=== PATIENT | male | born 1960 | race Caucasian/White ===

== ENCOUNTER 2017-06-22 10:52 | Outpatient (CLI) | payer MEDICAID ==
[~2017-06-22] VITALS: Ht 182.9 cm; Wt 104.5 kg
--- NOTE | ~2017-06-22 | HEMODYNAMI ---
PATIENT:STEVE KLEIN MEDICAL RECORD: [id number] : 56 LOCATION:TI ADMISSION DATE: 06/22/17 Generatedon:06/22/201713:38 Patient name: STEVE KLEIN Patient #: [id number] SSN: : 1960 Date of study: 06/22/2017 Page: Of Hemodynamic Procedure Report Patient Data Patient Demographics Procedure consent was obtained First Name: STEVE Gender: Male Last Name: LATOYA : 1960 [facility] Initial: MAYCOL Age: 56 year(s) Patient #: [id number] Race: Additional ID: [id number] Contact details [address]: [address] [place] [address] State: [place] City: [place] Zip code: [address] Past Medical History Allergies: No known allergies Admission Admission Data Admission Date: 06/22/2017 Admission Time: 10:52 Lab Results Lab Result Date: 06/22/2017 Lab Result Time: 11:25 Biochemistry Name Units Result Min Max BUN mg/dl 17 --(---*)-- 7 18 Creatinine mg/dl 1.2 --(---*)-- 0.6 1.3 CBC Name Units Result Min Max Hematocrit % 42.9 --(*---)-- 42 54 Hemoglobin g/dl 14.7 --(-*--)-- 13.5 17.5 Procedure Procedure Types Cath Procedure Diagnostic Procedure C [facility] w/Coronaries PCI Procedure Coronary Stent Initial Miscellaneous Procedures Moderate Sedation up to 45 minutes Procedure Description Procedure Date Procedure Date: 06/22/2017 Procedure Start Time: 13:15 Procedure End Time: 13:38 Procedure Staff Name Function Jordan Alcazar MD Performing Physician Guadalupe Forte RT Scrub Maritza Torrez RN Nurse Fredy Chase RT Monitor Procedure Data Cath Procedure Fluoroscopy Diagnostic fluoroscopy Total fluoroscopy Time: 5.7 time: 5.7 min min Diagnostic fluoroscopy Total fluoroscopy dose: dose: 1096 mGy 1096 mGy Contrast Material Contrast Material Type Amount (ml) Isovue 300 115 Entry Location Entry Primary Successful Side Size Upsize Upsize Entry Closure Alvarez ccessful Closure Location (Fr) 1 (Fr) 2 (Fr) Remarks Device Remarks Radial Right 6 Fr Mechanical artery Short Compression Estimated blood loss: 10 ml Diagnostic catheters Device Type Used For End Catheter Placement Diagnostic Terumo 5Fr Procedure [place] 110cm catheter Procedure Complications No complications Procedure Medications Medication Administration Route Dosage Oxygen NC 2 l/min Lidocaine 2% added to field 20 Heparin Flush Bag added to field 2 bags (1000units/500ml NS) 0.9% NaCl I.V. 100 ml/hr Radial Cocktail I.A. 1 syringe (Verapomil 2mg/Nitro 400mcg/Heparin 1500units) Versed I.V. 1 mg Fentanyl I.V. 50 mcg Versed I.V. 1 mg Fentanyl I.V. 50 mcg Heparin Bolus I.V. 4000 units Integrilin (Bolus I.V. 9.5 ml 2mg/ml) Plavix P.O. 600 mg Hemodynamics Rest HGB: 14.7 (g/dl) Heart Rate: 49 (bpm) Pressure Samples Time Site Value (mmHg) Purpose Heart Use Rate(bpm) 13:17 LV 100/1,8 Snapshot 57 13:17 AO 90/51(64) Pullback 59 13:17 LV 101/-5,9 Pullback 59 Gradients Valve Time Site 1 Site 2 Mean SEP/DFP Peak To Heart Use (mmHg) (sec/min) Peak Rate (mmHg) (bpm) Aortic 13:17 LV AO 7 20 11 59 101/-5,9 90/51(64) Calculations Valve P-P Mean Valve Index Valve Source Name Gradient Area Flow (cm2) Aortic 11 7 11 7 Snapshots Pre Cath Intra NCS Post Cath Vital Signs Time Heart Resp SPO2 etCO2 [id number] NIBP Rhythm Pain Sedation Rate (ipm) (%) (mmHg) (mmHg) (mmHg) Status Level (bpm) 12:58:56 45 17 99 0 0 115/66(98) NSR 0 (11) 10(A) , No pain 13:03:10 48 18 99 0 0 112/60(96) NSR 0 (11) 10(A) , No pain 13:07:20 50 15 100 0 0 116/69(93) NSR 0 (11) 10(A) , No pain 13:11:32 49 18 98 0 0 108/65(81) NSR 0 (11) 10(A) , No pain 13:15:44 56 15 98 0 0 107/57(75) NSR 0 (11) 10(A) , No pain 13:19:58 62 15 95 0 0 101/52(71) NSR 0 (11) 10(A) , No pain 13:24:06 57 16 96 0 0 104/62(76) NSR 0 (11) 10(A) , No pain 13:28:14 53 16 97 0 0 104/65(76) NSR 0 (11) 10(A) , No pain 13:32:24 52 16 96 0 0 103/62(77) NSR 0 (11) 10(A) , No pain 13:36:34 52 17 97 0 0 112/55(85) NSR 0 (11) 10(A) , No pain Medications Time Medication Route Dose Verified Delivered Reason Note s Effectiveness by by 13:08:24 Oxygen NC 2 l/min Jordan Salas used for Phil CampbellAlex Torrez RN procedure 13:08:31 Lidocaine 2% added 20ml Jordan Ortega for local to vial [facility] anesthetic field MD GRIFFIN 13:08:39 Heparin Flush added 2 bags Jordan Ortega used for Bag to [facility] procedure (1000units/500ml field MD GRIFFIN NS) 13:08:49 0.9% NaCl I.V. 100 Jordan Salas Per physician ml/hr St. Alex Torrez RN, MD 13:11:27 Versed I.V. 1 mg Jordan Wongie for sedation St. Alex Torrez RN, MD 13:11:34 Fentanyl I.V. 50 mcg Jordan Wongie for sedation St. Alex Torrez RN, MD 13:16:19 Radial Cocktail I.A. 1 Jordan Ortega for (Verapomil syringe [facility] vasodilation 2mg/Nitro MD GRIFFIN 400mcg/Heparin 1500units) 13:17:00 Versed I.V. 1 mg Jordan Wongie for sedation St. Alex Torrez RN, MD 13:17:04 Fentanyl I.V. 50 mcg Jordan Salas for sedation St. Alex Torrez RN, MD 13:22:03 Heparin Bolus I.V. 4000 Jordan Salas for veri fied units St. Alex Torrez RN anticoagulation with dr MD lamas 13:23:28 Integrilin I.V. 9.5 ml Jordan Salas for Wate d (Bolus 2mg/ml) St. Alex Torrez RN antiplatelet 0.5 ml therapy of vial 13:37:43 Plavix P.O. [address] for [address]. Alex Torrez RN antiplatelet therapy Procedure Log Time Note 12:42:33 Guadalupe Counts RT(R) sent for patient. Start room use. 12:42:34 Time tracking: Regular hours 12:42:37 Plan of Care:Hemodynamics will remain stable., Cardiac rhythm will remain stable., Comfort level will be maintained., Respiratory function will remain adequate., Patient/ family verbilizes understanding of procedure., Procedure tolerated without complication., Recovers from procedure without complications.. 12:52:14 Patient received from Pre/Post Procedure Room to CCL 1 Alert and oriented. Tansferred to table in Supine position. 12:52:17 Warm blankets applied, and nyasia hugger turned on for patient comfort. 12:52:17 Correct patient and procedure confirmed by team. 12:52:22 Signed procedure consent form obtained from patient. 12:52:23 ECG and BP/O2 sat monitors applied to patient. 12:52:33 H&P Date Dictated: 06/18/2017 Within 30 days and on chart., H&P Addendum completed by physician on day of procedure. (MUST COMPLETE FOR ALL OUTPATIENTS). 12:57:42 Vital chart was started 13:07:25 Baseline sample Acquired. 13:07:29 Rhythm: sinus rhythm 13:07:31 Pre-procedure instructions explained to patient. 13:07:31 Pre-op teaching completed and patient verbalized understanding. 13:07:33 Family in patients room. 13:07:34 Patient NPO since Midnight. 13:07:38 Patient allergic to No known allergies 13:07:40 Is the patient allergic to Iodine/contrast media? No. 13:07:41 Is patient on blood thinner?No 13:07:43 Patient diabetic? No. 13:07:45 Previous problem with sedation/anesthesia? No ? 13:07:46 Snore? No 13:07:47 Sleep apnea? No 13:07:48 Deviated septum? No 13:07:54 Opens mouth fully? Yes 13:07:57 Sticks out tongue? Yes 13:07:59 Airway obstruction? No ? 13:08:08 Dentures? Yes PARTIAL IN TIGHT 13:08:11 Modified Barron's test Ulnar < 7 seconds 13:08:13 Patient pain scale 0/10 ?. 13:08:21 IV patent on arrival in left hand with 0.9% NaCl at [facility]. 13:08:24 Oxygen 2 l/min NC was administered by Maritza Torrez RN; used for procedure; 13:08:31 Lidocaine 2% 20ml vial added to field was administered by Jordan Alcazar MD; for local anesthetic; 13:08:39 Heparin Flush Bag (1000units/500ml NS) 2 bags added to field was administered by Jordan Alcazar MD; used for procedure; 13:08:49 0.9% NaCl 100 ml/hr I.V. was administered by Maritza Torrez RN; Per physician; 13:08:54 Lab Result : BUN 17 mg/dl 13:08:54 Lab Result : Creatinine 1.2 mg/dl 13:08:54 Lab Result : Hemoglobin 14.7 g/dl 13:08:54 Lab Result : Hematocrit 42.9 % 13:08:56 Lab results completed and on chart. 13:09:09 Right Radial & Right Groin area was prepped with chlora-prep and draped in sterile fashion 13:09:11 Alarms reviewed by R. N. 13:09:11 Sharps counted by scrub and verified by R.N. 13:09:15 Use device set Radial Dx 13:09:17 Tegaderm 4 x 4 opened to sterile field. 13:09:18 Acist Manifold opened to sterile field. 13:09:19 Acist Hand Control opened to sterile field. 13:09:20 Acist Syringe opened to sterile field. 13:09:20 Medline Cath Pack opened to sterile field. 13:09:20 Bag Decanter opened to sterile field. 13:09:21 Terumo 6Fr Slender Glidesheath opened to sterile field. 13:09:21 St Shar 260cm J .035 wire opened to sterile field. 13::26 Physician arrived 13:: --------ALL STOP TIME OUT------ 13::27 Final Timeout: patient, procedure, and site verified with staff and physician. All members of the team are in agreement. 13::28 Right Radial & Right Groin site verified by team. 13::30 Physical assessment completed. ASA score P 2 - A patient with mild systemic disease as per Jordan Alcazar MD. 13:09:33 Sedation plan: IV Moderate Sedation Versed, Fentanyl 13::27 Versed 1 mg I.V. was administered by Maritza Torrez RN; for sedation; 13::34 Fentanyl 50 mcg I.V. was administered by Maritza Torrez RN; for sedation; 13:12:32 Zero performed for pressure channel P1 13:12:43 Zero performed for pressure channel P1 13:14:59 Procedure started. 13:14:59 Full Disclosure recording started 13:15:04 Local anesthetic to right radial artery with Lidocaine 2% by Jordan Alcazar MD.INITIAL ACCESS ONLY 13:15:16 A 6 Fr Short sheath was inserted into the Right Radial artery 13:15:50 A Diagnostic Panoratio 5Fr [place] 110cm catheter was advanced over the wire and used for Procedure. 13:16:19 Radial Cocktail (Verapomil 2mg/Nitro 400mcg/Heparin 1500units) 1 syringe I.A. was administered by Jordan Alcazar MD; for vasodilation; 13:17:00 Versed 1 mg I.V. was administered by Maritza Torrez RN; for sedation; 13:17:04 Fentanyl 50 mcg I.V. was administered by Maritza Torrez RN; for sedation; 13:17:10 LV hemodynamics recorded. 13:17:27 LV gram done using RILEY 13::29 Injector settings: Ml/sec: 5, Volume: 15, 13:17:36 EF : 45 % 13:18:11 LCA angiography performed. 13:19:59 RCA angiography performed. 13:20:22 ReCellular BasixCompak Inflation Kit opened to sterile field. 13:20:24 Catheter removed. 13:20:32 Robertson Whisper J 300cm 0.014 guide wire opened to sterile field. 13:21:56 Sprout Foodstronic Launcher 6Fr EBU 3.5 guide catheter opened to sterile field. 13:22:03 Heparin Bolus 4000 units I.V. was administered by Maritza Torrez RN; for anticoagulation; verified with dr lamas 13:22:52 6 Fr ebu 3.5 guide catheter was inserted over the wire 13:23:28 Integrilin (Bolus 2mg/ml) 9.5 ml I.V. was administered by Maritza Torrez RN; for antiplatelet therapy; Wated 0.5 ml of vial 13:24:00 Guide Catheter removed. unable to cannulate vessel. 13:24:07 Cordis 6FR XBLAD 3.5 guide catheter opened to sterile field. 13:26:36 WHISPER wire advanced. 13:27:26 Inflation Number: 1 A Medtronic Integrity 4.0 X 9 stent was prepped and advanced across the Mid CX. The stent was deployed at 14 RANDA for 0:30 (min:sec). 13:29:43 Stent catheter was removed intact over wire. 13:32:51 Inflation Number: 1 A Medtronic Integrity 4.0 X 9 stent was prepped and advanced across the Prox CX. The stent was deployed at 14 RANDA for 0:15 (min:sec). 13:33:06 Stent catheter was removed intact over wire. 13:33:07 Wire removed. 13:33:07 Guide catheter removed. 13:33:15 Terumo TR Band Standard opened to sterile field. 13:33:30 Sheath removed intact; hemostasis achieved with Mechanical Compression to the Right Radial artery. 13:33:32 Procedure ended.(Physican Out) 13:36:50 Fluoroscopy time 05.70 minutes. 13:36:56 Fluoroscopy dose: 1096 mGy 13:36:56 Flurop Dose total: 1096 13:36:59 Contrast amount:Isovue 300 115ml. 13:37:00 Sharps counted by scrub and verified by R.N. 13:37:04 TR band inflated with 12cc of air. 13:37:09 Post Procedure Pulses reassessed and unchanged 13:37:12 Post-procedure physical assessment completed. ASA score P 2 - A patient with mild systemic disease as per Jordan Alcazar MD. 13:37:16 Post procedure rhythm: unchanged. 13:37:18 Estimated blood loss: 10 ml 13:37:20 Post procedure instruction explained to patient.Patient verbalizes understanding. 13:37:20 Patient needs reinforcement of post procedure teaching. 13:37:37 Procedure type changed to Cath procedure, Diagnostic procedure, LHC, LHC w/Coronaries, PCI procedure, Coronary Stent Initial, Miscellaneous Procedures, Moderate Sedation up to 45 minutes 13:37:43 Plavix 600 mg P.O. was administered by Maritza Torrez RN; for antiplatelet therapy; 13:38:04 Procedure Complication : No complications 13:38:06 Vital chart was stopped 13:38:07 See physician's report for complete and final results. 13:38:08 Report given to Pre/Post Procedure Room. 13:38:10 Patient transfered to Pre/Post Procedure Room with Stretcher. 13:38:12 Procedure ended. 13:38:12 Full Disclosure recording stopped 13:38:16 End room use (Document Last) Intervention Summary Intervention Notes Time ActionType Lesion and Equipment Action# Pressure Duration Attributes Used 13:27:26 Place stent Mid CX Medtronic 1 14 00:30 Integrity 4.0 X 9 stent 13:32:51 Place stent Prox CX Medtronic 1 14 00:15 Integrity 4.0 X 9 stent Device Usage Item Name Manufacture Quantity Catalog Hospital Part Current Minimal Lot# / Number Charge Number Stock Stock Serial# Code Tegaderm 4 1 [id number] 101498 [id number] 5 x 4 Acist Acist 1 89380 220662 275101 152165 5 Manifold [employer] Inc Acist Hand Acist 1 19630 284318 516920 752553 5 Control Medical Systems Inc Acist Acist 1 61188 904393 152576 439182 20 Syringe Medical Systems Inc Medline Cardinal 1 [id number] 020207 44012 229261 5 Cath Pack Health Bag Microtek 1 2002S 352762 77119 518207 5 [employer] Terumo 6Fr Terumo 1 [id number] 475851 404797 726204 [address] St Shar 1 964216 292784 601913 978591 30 260cm J .035 wire Diagnostic Terumo 1 40-6032 570076 447132 286970 5 Terumo 5Fr [place] 110cm catheter Merit Merit 1 [id number] 157948 198840 300993 15 BasixMagnet Systems Medical Inflation Kit Robertson Robertson 1 [id number] 404542 002287 605387 5 Whisper J Vascular 300cm 0.014 guide wire Medtronic Medtronic 1 [id number] 663434 08231 318513 3 Launcher 6Fr EBU 3.5 guide catheter Cordis 6FR Cardinal 1 [id number] 435607 518061 190628 10 XBLAD 3.5 Health guide catheter Medtronic Medtronic 2 [id number] 153546 9546469 3 [id number] [facility] [id number] 4.0 X 9 stent Terumo TR Terumo 1 [id number] 297658 047250 431986 40 Band Standard Signature Audit [place] Stage Time Signature Unsigned Intra-Procedure 06/22/2017 Fredy Chase 1:38:51 PM RT(R) Signatures Monitor : Fredy Chase RT Signature : Date : Time : [place] [id number]
--- NOTE | ~2017-06-22 | OP ---
PATIENT NAME: STEVE KLEIN MEDICAL RECORD: [id number] :56 LOCATION:D.CAT ADMISSION DATE: SURGEON: RUDY VERDUGO MD DATE OF OPERATION: 06/22/2017 PROCEDURES: 1. Left heart catheterization. 2. Right radial approach. CATHETERS: A radial sheath and [place] catheter. The procedure was well tolerated and we proceeded immediately to PTCA stenting. FINDINGS: Left ventriculography in the 30-degree RILEY view shows mild global hypokinesis. Overall, function mildly reduced at 40%-45%. CORONARY ANATOMY: LEFT MAIN: Left main is free of disease. LAD: Proximal to the previously placed stent also involving the previously stent has restenosis both in-stent and end-stent restenosis about 80%. CIRCUMFLEX: Has 2 sequential stenosis, distal 90%, proximal 80%. RIGHT CORONARY ARTERY: Rudimentary without significant disease. PLAN: Interventional to the circumflex momentarily using indwelling sheath. An XB LAD guiding catheter of 0.035 [place] guide support followed by 300 cm Whisper wire was placed across the totally occluded circumflex down to distal portion of this vessel. Initial stent deployed to 90% stenosis was an 8-mm x 4.0 Integrity nondrug-eluting stent, more proximal lesion was addressed with again 4.0 x 8 mm Integrity nondrug-eluting stent. Final injection shows excellent resolution of 80% stenosis proximally and 90% stenosis distally. LUKE flow was 3 throughout the procedure. Heparin and Integrilin were both used during the case. Sheath was closed with TR band. 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
[2017-06-22] MEDS ORDERED: MIRAPEX1 MG PO (11:09)
[2017-06-22] MEDS ORDERED: LEVOTHYROXINE50 MCG PO (11:09)
[2017-06-22] MEDS ORDERED: ROBAXIN500 MG PO (11:09)
[2017-06-22] MEDS ORDERED: ULTRAM50 MG PO (11:10)
[2017-06-22 11:16] VITALS: BP 119/58; Ht 182.9 cm; Wt 104.5 kg
[2017-06-22] MEDS ORDERED: BENICAR HCT 20-1 TA1 PO (11:19)
[2017-06-22 11:29] LABS: BASOPHILS 0.6 % (0-2); EOSINOPHILS 3.5 % (0-7); HEMATOCRIT 42.9 % (42.0-54.0); HEMOGLOBIN 14.7 g/dL (13.5-17.5); IMMATURE GRANULOCYTES 0.3 % (0-5); LYMPHOCYTES 31.8 % (15-50); MCH 30.2 pg (26.0-34.0); MCHC 34.3 g/dL (31.0-37.0); MCV 88.1 fL (80.0-100.0); MEAN PLATELET VOLUME 9.8 fL (7.4-10.4); MONOCYTES 7.4 % (2-11); NEUTROPHILS 56.4 % (40-80); RBC 4.87 10x6/uL (4.20-6.10); RDW 13.1 % (11.5-14.5); WBC 6.4 10x3/uL (4.8-10.8)
[2017-06-22 11:32] LABS: PLATELET COUNT 283 10x3/uL (130-400)
[2017-06-22 11:37] LABS: ANION GAP 10.6 mmol/L (8-16); CALCIUM 8.8 mg/dL (8.5-10.1); CARBON DIOXIDE 27.5 mmol/L (21.0-32.0); CREATININE - SERUM 1.2 mg/dL (0.6-1.3); POTASSIUM - SERUM 4.1 mmol/L (3.5-5.1)
[2017-06-22] MEDS ORDERED: PLAVIX75 MG PO (13:55)
--- NOTE | 2017-06-22 14:00 | NUR ---
TR BAND TO RIGHT WRIST- CDI, NO BLEEDING AT SITE.
--- NOTE | 2017-06-22 14:30 | NUR ---
TR BAND INTACT, NO BLEEDING AT SITE, DIET XIOMARA. CAP REFILL BRISK
--- NOTE | 2017-06-22 18:00 | NUR ---
IV D'C WITH CATH TIP INTACT, 600CC NS INFUSED. TR BAND OFF WITH BANDAID APPLIED AT SITE- NO BLEEDING OR HEMATOMA NOTED. WRITTEN AND VERBAL D'C INSTRUCTIONS GIVEN TO PT AND FATHER- VERBAL UNDERSTANDING NOTED- STRESSED IMPORTANCE OF NOT USING RIGHT HAND FOR 48 HOURS AND NOT LIFTING MORE THAN 10 LBS FOR 4 DAYS. D'C HOME WITH FATHER DRIVING.
== END 2017-06-22 18:00 | disposition home or self-care (01) ==
LOC: D.CATH 10:52
PROVIDERS: Internal Medicine Interventional Cardiology
DX: I25.119 Atherosclerotic heart disease of native coronary artery with unspecified angina pectoris (principal); T82.855A Stenosis of coronary artery stent, initial encounter; Z01.812 Encounter for preprocedural laboratory examination

== ENCOUNTER 2017-06-29 11:41 | Outpatient (CLI) | payer MEDICAID ==
[~2017-06-29] VITALS: Ht 182.9 cm; Wt 104.5 kg
--- NOTE | ~2017-06-29 | HEMODYNAMI ---
PATIENT:STEVE KLEIN MEDICAL RECORD: [id number] : 56 LOCATION:TI ADMISSION DATE: 06/29/17 Generatedon:06/29/201715:34 Patient name: STEVE KLEIN Patient #: [id number] SSN: : 1960 Date of study: 06/29/2017 Page: Of Hemodynamic Procedure Report Patient Data Patient Demographics Procedure consent was obtained First Name: STEVE Gender: Male Last Name: LATOYA : 1960 Middle Initial: MAYCOL Age: 56 year(s) Patient #: [id number] Race: Additional ID: [id number] Contact details Address: [address] [place] [address] State: [place] City: [place] Zip code: [address] Past Medical History Allergies: No known allergies Admission Admission Data Admission Date: 06/29/2017 Admission Time: 11:41 Procedure Procedure Types Cath Procedure PCI Procedure Coronary Stent Initial Miscellaneous Procedures Moderate Sedation up to 15 minutes Procedure Description Procedure Date Procedure Date: 06/29/2017 Procedure Start Time: 15:19 Procedure End Time: 15:34 Procedure Staff Name Function Jordan Alcazar MD Performing Physician Guadalupe Forte RT Scrub Sudhir Mirza RN Nurse Brent Thorpe RT Monitor Procedure Data Cath Procedure Fluoroscopy Diagnostic fluoroscopy Total fluoroscopy Time: 1.2 time: 1.2 min min Diagnostic fluoroscopy Total fluoroscopy dose: 154 dose: 154 mGy mGy Contrast Material Contrast Material Type Amount (ml) Isovue 300 27 Entry Location Entry Primary Successful Side Size Upsize Upsize Entry Closure Succes sful Closure Location (Fr) 1 (Fr) 2 (Fr) Remarks Device Remarks Femoral Right 6 Fr Exoseal artery Short Estimated blood loss: 10 ml Procedure Complications No complications Procedure Medications Medication Administration Route Dosage 0.9% NaCl I.V. 100 ml/hr Oxygen NC 2 l/min Heparin Flush Bag added to field 2 bags (1000units/500ml NS) Versed I.V. 2 mg Fentanyl I.V. 100 mcg Heparin Bolus I.V. 5000 units Hemodynamics Rest HGB: 14.7 (g/dl) Heart Rate: 48 (bpm) Snapshots Pre Cath Intra NCS Post Cath Vital Signs Time Heart Resp SPO2 etCO2 FO8qoek NIBP (mmHg) Rhythm Pain Sedation Rate (ipm) (%) (mmHg) (mmHg) Status Level (bpm) 15:10:00 52 24 100 0 0 121/69(100) NSR 0 (11) 10(A) , No pain 15:14:09 51 12 100 0 0 124/70(96) NSR 0 (11) 10(A) , No pain 15:18:19 53 20 97 0 0 126/71(87) NSR 0 (11) 10(A) , No pain 15:22:31 17 97 0 0 125/65(94) NSR 0 (11) 10(A) , No pain 15:26:43 18 98 0 0 121/68(84) NSR 0 (11) 10(A) , No pain 15:30:53 52 11 99 0 0 113/67(84) NSR 0 (11) 10(A) , No pain Medications Time Medication Route Dose Verified Delivered Reason Notes Effectiveness by by 15:06:53 0.9% NaCl I.V. 100 Sudhir Sudhir Per physician ml/hr Yuki Mirza RN RN 15:07:13 Oxygen NC 2 Sudhir Sudhir Per physician l/min Yuki Mirza RN RN 15:07:32 Heparin Flush added 2 Sudhir Sudhir used for Bag to bags Yuki Mirza procedure (1000units/500ml field RN RN NS) 15:12:06 Versed I.V. 2 mg Sudhir Sudhir for sedation Yuki Mirza RN RN 15:13:00 Fentanyl I.V. 100 Sudhir Sudhir for sedation mcg Yuki Mirza RN RN 15:23:55 Heparin Bolus I.V. 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 Start room use. 14:50:20 Time tracking: Regular hours 14:50:24 Plan of Care:Hemodynamics will remain stable., Cardiac rhythm will remain stable., Comfort level will be maintained., Respiratory function will remain adequate., Patient/ family verbilizes understanding of procedure., Procedure tolerated without complication., Recovers from procedure without complications.. 15:04:29 Patient received from Pre/Post Procedure Room to CCL 1 Alert and oriented. Tansferred to table in Supine position. 15:04:31 Warm blankets applied, and nyasia hugger turned on for patient comfort. 15:04:32 Correct patient and procedure confirmed by team. 15:04:33 Signed procedure consent form obtained from patient. 15:04:34 ECG and BP/O2 sat monitors applied to patient. 15:06:53 0.9% NaCl 100 ml/hr I.V. was administered by Sudhir Mirza RN; Per physician; 15:07:13 Oxygen 2 l/min NC was administered by Sudhir Mirza RN; Per physician; 15:07:22 Vital chart was started 15:07:24 Baseline sample Acquired. 15:07:32 Heparin Flush Bag (1000units/500ml NS) 2 bags added to field was administered by Sudhir Mirza RN; used for procedure; 15:07:35 Rhythm: sinus bradycardia 15:07:36 Full Disclosure recording started 15:07:55 H&P Date Dictated: 06/18/2017 Within 30 days and on chart., H&P Addendum completed by physician on day of procedure. (MUST COMPLETE FOR ALL OUTPATIENTS). 15:08:10 Pre-procedure instructions explained to patient. 15:08:11 Pre-op teaching completed and patient verbalized understanding. 15:08:21 Family in waiting room. 15:08:23 Patient NPO since Midnight. 15:08:26 Is the patient allergic to Iodine/contrast media? No. 15:08:28 Is patient on blood thinner?Yes 15:08:31 ACC The patient was administered the following blood thiners within the last 24 hours: ACCPlavix 15:08:35 Patient diabetic? No. 15:08:38 Previous problem with sedation/anesthesia? No ? 15:08:39 Snore? No 15:08:42 Sleep apnea? No 15:08:43 Deviated septum? No 15:08:50 Opens mouth fully? Yes 15:08:51 Sticks out tongue? Yes 15:08:54 Airway obstruction? No ? 15:08:55 Dentures? No ? 15:08:59 Pre procedure: right dorsailis pedis pulse 1+ Palpable, but thready & weak; easily obliterated 15:09:06 Patient pain scale 0/10 ?. 15:09:16 IV patent on arrival in left forearm with 0.9% NaCl at [facility]. 15:09:19 Lab results completed and on chart. 15:09:24 Right groin area was prepped with chlora-prep and draped in sterile fashion 15:: Alarms reviewed by R. N. 15::26 Sharps counted by scrub and verified by R.N. 15:09:32 Use device set Femoral PCI 15:09:34 Tegaderm 4 x 4 opened to sterile field. 15:09:35 Acist Manifold opened to sterile field. 15:09:36 Acist Syringe opened to sterile field. 15:09:36 Acist Hand Control opened to sterile field. 15:09:37 Bag Decanter opened to sterile field. 15:09:37 Medline Cath Pack opened to sterile field. 15:09:37 Terumo 6Fr [place] Sheath opened to sterile field. 15:09:38 St Shar 260cm J .035 wire opened to sterile field. 15:09:38 Merit BasixCompak Inflation Kit opened to sterile field. 15:11:28 --------ALL STOP TIME OUT------ 15:11:29 Final Timeout: patient, procedure, and site verified with staff and physician. All members of the team are in agreement. 15:11:31 Right groin site verified by team. 15:11:34 Physical assessment completed. ASA score P 2 - A patient with mild systemic disease as per Jordan Alcazar MD. 15:11:38 Sedation plan: IV Moderate Sedation Versed, Fentanyl 15:12:06 Versed 2 mg I.V. was administered by Sudhir Mirza RN; for sedation; 15:12:22 Robertson Whisper J 300cm 0.014 guide wire opened to sterile field. 15:13:00 Fentanyl 100 mcg I.V. was administered by Sudhir Mirza RN; for sedation; 15:18:59 Zero performed for pressure channel P1 15:19:01 Zero performed for pressure channel P1 15:19:04 Zero performed for pressure channel P1 15:19:16 Cordis 6FR XBLAD 4.0 guide catheter opened to sterile field. 15:19:24 Procedure started. 15:19:29 Local anesthetic to right femoral artery with Lidocaine 2% by Jordan Alcazar MD.INITIAL ACCESS ONLY 15:19:49 A 6 Fr Short sheath was inserted into the Right Femoral artery 15:20:06 Study PCI Site: [place] pLAD has 80% stenosis. 15:20:09 ACC Pre-intervention LUKE Flow is 3. 15:20:13 6 Fr XBLAD 4 guide catheter was inserted over the wire 15::42 Whisper wire advanced. 15:23:55 Heparin Bolus 5000 units I.V. was administered by Sudhir Mirza RN; for anticoagulation; 15:24:07 Wire advanced across lesion. 15:24:47 Inflation Number: 1 A XMarket Integrity 3.5 X 12 stent was prepped and advanced across the Prox LAD. The stent was deployed at 14 RANDA for 0:45 (min:sec). 15:25:20 ACC Post-intervention LUKE Flow is 3. 15:25:22 Stent catheter was removed intact over wire. 15:25:23 Wire removed. 15:25:24 Guide catheter removed. 15:25:50 Sheath removed intact; hemostasis achieved with Exoseal to the Right Femoral artery. 15:26:09 Cordis 6Fr Exoseal opened to sterile field. 15:26:18 Procedure ended.(Physican Out) 15:27:06 Fluoroscopy time 01.20 minutes. 15:27:10 Fluoroscopy dose: 154 mGy 15:27:10 Flurop Dose total: 154 15:27:14 Contrast amount:Isovue 300 27ml. 15:27:16 Sharps counted by scrub and verified by R.N. 15:27:19 Insertion/operative site no bleeding no hematoma. 15:27:22 Post-op/insertion site Right Femoral artery dressed using a 4 x 4 and Tegaderm. 15:27:23 Post Procedure Pulses reassessed and unchanged 15:27:28 Post-procedure physical assessment completed. ASA score P 2 - A patient with mild systemic disease as per Jordan Alcazar MD. 15:27:31 Post procedure rhythm: unchanged. 15:27:36 Estimated blood loss: 10 ml 15:27:38 Post procedure instruction explained to patient.Patient verbalizes understanding. 15:27:38 Patient needs reinforcement of post procedure teaching. 15:27:46 Procedure type changed to Cath procedure, PCI procedure, Coronary Stent Initial, Miscellaneous Procedures, Moderate Sedation up to 15 minutes 15:27:49 Procedure Complication : No complications 15:28:14 Procedure and supply charges have been captured, reviewed, submitted and are correct. 15:33:55 Vital chart was stopped 15:33:56 See physician's report for complete and final results. 15:33:58 Report given to Pre/Post Procedure Room. 15:34:00 Patient transfered to Pre/Post Procedure Room with Stretcher. 15:34:03 Procedure ended. 15:34:03 Full Disclosure recording stopped 15:34:14 End room use (Document Last) Intervention Summary Intervention Notes Time ActionType Lesion and Equipment Action# Pressure Duration Attributes Used 15:24:47 Place stent Prox LAD Medtronic 1 14 00:45 Integrity 3.5 X 12 stent Device Usage Item Name Manufacture Quantity Catalog Hospital Part Current Minimal L ot# / Number Charge Number Stock Stock Serial# Code [facility] 4 1 [id number] [id number] [id number] 802262 5 x 4 Acist Acist 1 16569 568592 171261 873965 5 Manifold [employer] Inc Acist Acist 1 06979 243681 094104 393335 20 Syringe Medical Systems Inc Acist Hand Acist 1 26939 953389 789920 152774 5 Control Medical Systems Inc Bag Microtek 1 2002S 476847 98969 195503 5 Decanter Medical Inc. Medline Cardinal 1 [id number] 633058 70317 265590 5 Cath Pack Health Terumo 6Fr Terumo 1 [id number] 623626 024700 835901 [address] Shar 1 255017 481551 990863 438298 30 260cm J .035 wire Merit Merit 1 UK1433 417029 494336 159249 15 BasixCompak Medical Inflation Kit Robertson Robertson 1 [id number] 742905 771763 472050 5 Whisper J Vascular 300cm 0.014 guide wire Cordis 6FR Cardinal 1 [id number] 217164 392641 297501 3 XBLAD 4.0 Health guide catheter Medtronic Medtronic 1 [id number] 472981 555115 1 0 [id number] Integrity 3.5 X 12 stent Cordis 6Fr Cardinal 1 EX600 162876 233270 249075 10 [facility] Health Signature Audit [place] Stage Time Signature Unsigned Intra-Procedure 06/29/2017 Brent Thorpe 3:34:29 PM RT(R) Signatures Monitor : Brent Thorpe RT Signature : Date : Time : [address] [address]
[~2017-06-29 11:41] MED LIST: BENICAR HCT 20-1 TA1 PO; LEVOTHYROXINE50 MCG PO; MIRAPEX1 MG PO; PLAVIX75 MG PO; ROBAXIN500 MG PO; ULTRAM50 MG PO
[2017-06-29 12:57] VITALS: BP 120/74; Ht 182.9 cm; Wt 104.5 kg
[2017-06-29 13:19] LABS: BASOPHILS 0.3 % (0-2); HEMATOCRIT 42.6 % (42.0-54.0); HEMOGLOBIN 14.7 g/dL (13.5-17.5); IMMATURE GRANULOCYTES 0.1 % (0-5); LYMPHOCYTES 34.9 % (15-50); MCH 30.4 pg (26.0-34.0); MCHC 34.5 g/dL (31.0-37.0); MEAN PLATELET VOLUME 9.7 fL (7.4-10.4); MONOCYTES 5.3 % (2-11); NEUTROPHILS 56.4 % (40-80); PLATELET COUNT 308 10x3/uL (130-400); RBC 4.84 10x6/uL (4.20-6.10); RDW 12.9 % (11.5-14.5); WBC 6.7 10x3/uL (4.8-10.8)
[2017-06-29 13:28] LABS: ANION GAP 13.2 mmol/L (8-16); CALCIUM 8.9 mg/dL (8.5-10.1); CARBON DIOXIDE 27.1 mmol/L (21.0-32.0); CREATININE - SERUM 1.1 mg/dL (0.6-1.3); POTASSIUM - SERUM 4.3 mmol/L (3.5-5.1)
--- NOTE | 2017-06-29 15:45 | NUR ---
RIGHT GROIN CDI, NO HEMATOMA OR BLEEDING AT SITE, SOFT TO TOUCH.
--- NOTE | 2017-06-29 16:15 | NUR ---
NO CHANGES IN ASSESSMENT, RESTING WITH EYES CLOSED, REG RATE, VSS
--- NOTE | 2017-07-01 08:14 | OP ---
PATIENT NAME: STEVE KLEIN MEDICAL RECORD: [id number] :56 LOCATION:D.CAT ADMISSION DATE: SURGEON: RUDY VERDUGO MD DATE OF OPERATION: 06/29/2017 PTCA Stent Report DESCRIPTION OF PROCEDURE: A 6-Slovenian sheath was placed in the right femoral artery. An XB LAD guide catheter provided excellent guide catheter support followed by 300 cm Whisper wire was placed across the tightly occluded LAD 80% down to this portion of vessel. Stent deployed was a 3.5 x 12 mm Integrity nondrug-eluting stent up to 14 atmospheres. Final injection shows excellent resolution of an 80% stenosis, no significant residual. LUKE flow was 3 throughout the procedure. The patient was previously on Plavix. Integrilin was used in the case. Sheath closed with ExoSeal device. TRANSINT:[id number] Voice Confirmation ID: [id number] DOCUMENT ID: [id number] RUDY VERDUGO MD at 0814 CC: [id number] DICTATION DATE: 06/29/17 1537 FORESTER AIDE: 06/29/17 1913 DEP CLI 06/29/17 [facility] [address] [place] [address]
== END 2017-06-29 19:30 | disposition home or self-care (01) ==
LOC: D.CATH 11:41
PROVIDERS: Internal Medicine Interventional Cardiology
DX: I25.10 Atherosclerotic heart disease of native coronary artery without angina pectoris (principal); Z01.812 Encounter for preprocedural laboratory examination

== ENCOUNTER → 2019-10-30 10:26 | Outpatient (CLI) | payer BC ==
[2017-06-29 12:57] VITALS: BMI 31.2
--- NOTE | 2019-11-02 11:25 | EC ---
PATIENT:STEVE KLEIN DATE OF SERVICE: 10/30/19 SEX: M MEDICAL RECORD: [id number] DATE OF : 56 LOCATION:D.[facility] AGE OF PATIENT: 59 ADMISSION DATE: 10/30/19 REFERRING PHYSICIAN: INTERPRETING PHYSICIAN: RUDY VERDUGO MD ECHOCARDIOGRAM REPORT ECHO CHARGES 4 ECHO COMPLETE Date: 10/30/19 CLINICAL DIAGNOSIS: CARDIOMYOPATHY H/O HTN/CAD ECHOCARDIOGRAPHIC MEASUREMENTS (adult normal given) AC root (d.<3.7cm) 3.6 cm LV Septum d (<1.2 cm> 1.0 cm Valve Excursion 2.4 cm LV Septum (systole) 1.7 cm Left Atria (s.<4.0cm> 3.8 cm LVPW d(<1.2cm) 1.2 cm RV (d.<2.3cm) 3.4 cm LVPW (sytole) 2.1 cm LV diastole(<5.6CM) 7.4 cm MV E-F(>70mm/sec) cm LV systole 4.6 cm LVOT Diameter 2.2 cm MV exc.(>10mm) cm Est.ejection fraction (50-75%) % DOPPLER: LVIT cm/sec A 56.0 cm/sec E 97.0 cm/sec LA cm/sec RVSP 19.0 mmHg LVOT 134 cm/sec AOP1/2T m/s Asc. Ao 157 cm/sec RVOT 48.0 cm/sec RA cm/sec PA 87.0 cm/sec AV Gradient Peak 9.8 mmHg AV Mean 4.7 mmHg AV Area 3.0 cm MV Gradient Peak 4.3 mmHg MV Mean 1.6 mmHg MV Area cm COMMENTS: OP - HC Human Resource Assistant: 1 MILEY SCOTTY Key Account Coordinator: 3 Dr. Alcazar TAPE# PACS Pericardial Effusion N DATE OF SERVICE: Adequate 2D, color flow imaging, spectral Doppler, and M-Mode No LVH. LV internal dimensions are normal. LV is globally hypokinetic with reduced EF, estimated EF 30% to 35%. Aortic valve is sclerosed without evidence of stenosis by Doppler interrogation. Left atrium is normal at 3.8 cm. Mitral valve shows no prolapse. Trace MR. Right-sided chambers are grossly normal. Mild TR. ECHOCARDIOGRAM REPORT [id number] STEVE KLEIN TRANSINT:[id number] Voice Confirmation ID: [id number] DOCUMENT ID: [id number] RUDY VERDUGO MD at 1125 CC: [id number] DICTATION DATE: 10/31/19 1011 OPERATER: 10/31/19 1155 DEP CLI 10/30/19 [place] [id number] [place] [id number]
== END | disposition home or self-care (01) ==
LOC: D.HCCECHO 10:26
PROVIDERS: ATTEND Internal Medicine Interventional Cardiology
DX: I42.9 Cardiomyopathy, unspecified (principal)

== ENCOUNTER 2020-01-16 17:47 | Emergency (ER) | payer MEDICAID ==
[~2020-01-16] VITALS: Ht 182.9 cm; Wt 115.5 kg
[2020-01-16 17:58] VITALS: Ht 182.9 cm; Wt 115.5 kg
[2020-01-16] MEDS ORDERED: OMEPRAZOLE40 MG PO (18:00)
[2020-01-16] MEDS ORDERED: TORADOL10 MG PO (20:55)
[2020-01-16] MEDS ORDERED: CYCLOBENZAPRINE10 MG PO (20:55)
[2020-01-16 21:21] VITALS: BP 118/53
== END 2020-01-16 21:21 | disposition home or self-care (01) ==
LOC: D.ER 17:47
DX: S96.911A Strain of unspecified muscle and tendon at ankle and foot level, right foot, initial encounter (principal); S76.911A Strain of unspecified muscles, fascia and tendons at thigh level, right thigh, initial encounter; W19.XXXA Unspecified fall, initial encounter; Y93.9 Activity, unspecified; Y92.9 Unspecified place or not applicable; E07.9 Disorder of thyroid, unspecified; I25.2 Old myocardial infarction; K21.9 Gastro-esophageal reflux disease without esophagitis